=== PATIENT | male | born 1970 | race Caucasian/White ===

== ENCOUNTER 2022-07-12 14:56 | Inpatient (IN) | payer OTHER ==
[2022-07-12 15:55] VITALS: BMI 22.1
[2022-07-12] MEDS ORDERED: MAG HYDROX/AL HYDROX/SIMETH 30 ML UNIT-DOSE CUP PO PRN (19:43)
[2022-07-12] MEDS ORDERED: NALOXONE HCL (KLOXXADO) 8 MG SPRAY NS PRN (19:43)
[2022-07-12] MEDS ORDERED: P-EPHED 60MG/TRIPROLIDI 2.5MG TABLET PO PRN (19:43)
[2022-07-12] MEDS ORDERED: guaiFENesin 600 MG TABLET.ER (FP) PO PRN (19:43)
[2022-07-12] MEDS ORDERED: MAGNESIUM HYDROX 2400MG/30ML ORAL SUSPENSION 30 ML CUP PO PRN (19:43)
[2022-07-12] MEDS ORDERED: POLYETHYLENE GLYCOL (HEALTHYLAX) 3350 17 GM PACKET PO PRN (19:43)
[2022-07-12] MEDS ORDERED: LOPERAMIDE HCL 2 MG CAPSULE PO PRN (19:43)
[2022-07-12] MEDS ORDERED: BENZOCAINE/MENTHOL (CHLORASEPTIC ) LOZENGE MM PRN (19:43)
[2022-07-12] MEDS ORDERED: DICYCLOMINE HCL 10 MG CAPSULE PO PRN (19:43)
[2022-07-12] MEDS ORDERED: METHOCARBAMOL 500 MG TABLET PO PRN (19:43)
[2022-07-12] MEDS ORDERED: BENZONATATE 200 MG CAPSULE PO PRN (19:43)
[2022-07-12] MEDS ORDERED: BISMUTH SUBSALICYLATE 524 MG/30 ML PO PRN (19:43)
[2022-07-12] MEDS ORDERED: NICOTINE POLACRILEX 2 MG GUM BUC PRN (19:43)
[2022-07-12] MEDS ORDERED: ONDANSETRON *ODT* 4 MG TABLET SL PRN (19:43)
[2022-07-12] MEDS ORDERED: IBUPROFEN 400 MG TABLET (FP) PO PRN (19:43)
[2022-07-12] MEDS ORDERED: ACETAMINOPHEN 325 MG TABLET (FP) PO PRN ×2 (19:43)
[2022-07-12] MEDS ORDERED: NALOXONE HCL 0.4 MG/ML VIAL IM PRN (19:43)
[2022-07-12] MEDS ORDERED: IBUPROFEN 600 MG TABLET (FP) PO ONE (20:28)
[2022-07-12] MEDS: IBUPROFEN 600 MG TABLET (FP) PO PRN (20:30)
[2022-07-12] MEDS: diazePAM 5 MG TABLET PO PRN (21:17)
[2022-07-12] MEDS: MELATONIN 5 MG TABLETS PO PRN (21:18)
[2022-07-12] MEDS: THIAMINE HCL 100 MG TABLET (FP) PO SCH (21:18)
[2022-07-12] MEDS: diazePAM 5 MG TABLET PO SCH (22:30)
[2022-07-13] MEDS: diazePAM 5 MG TABLET PO SCH ×4 (05:42→22:21)
[2022-07-13] MEDS: IBUPROFEN 600 MG TABLET (FP) PO PRN ×2 (05:45→14:16)
[2022-07-13] MEDS ORDERED: methaDONE HCL 40 MG DISPERSABLE TABLET PO SCH (10:00)
[2022-07-13] MEDS: PRENATAL VITAMINS W/ FOLIC ACID TABLET (FP) PO SCH (10:10)
[2022-07-13] MEDS: diazePAM 5 MG TABLET PO PRN (13:27)
[2022-07-13 18:20] LABS: HEMATOCRIT 34.4 % (35.4-49); HEMOGLOBIN 11.9 GM/dL (11.7-16.9); MCH 30.6 pg (25.7-33.7); MCHC 34.6 g/dl (32.0-35.9); MEAN CELL VOLUME 88.2 fl (80-96); MEAN PLT VOLUME 8.9 fl (7.5-11.1); PLATELET COUNT 101 10^3/uL (134-434); RDW 13.4 % (11.9-15.9); WHITE BLOOD COUNT 2.9 K/mm3 (4.0-10.0)
[2022-07-13 18:31] LABS: POTASSIUM 4.6 mmol/L (3.5-5.1)
[2022-07-13 18:37] LABS: CALCIUM 8.7 mg/dL (8.5-10.1)
[2022-07-13 18:38] LABS: ALBUMIN 3.8 g/dl (3.4-5.0); BLOOD UREA NITROGEN 21.5 mg/dL (7-18)
[2022-07-13 18:41] LABS: BILIRUBIN,TOTAL 0.4 mg/dL (0.2-1); CREATININE 0.7 mg/dL (0.55-1.3)
[2022-07-13] MEDS: traZODone HCL 50 MG TABLET (FP) PO SCH (22:21)
[2022-07-13] MEDS: THIAMINE HCL 100 MG TABLET (FP) PO SCH (22:21)
[2022-07-13] MEDS: MELATONIN 5 MG TABLETS PO PRN (22:22)
[2022-07-14] MEDS ORDERED: diazePAM 5 MG TABLET PO SCH (06:00)
[2022-07-14] MEDS: PRENATAL VITAMINS W/ FOLIC ACID TABLET (FP) PO SCH (10:22)
[2022-07-14] MEDS: chlordiazePOXIDE HCL 25 MG CAPSULE PO SCH ×3 (10:23→22:06)
[2022-07-14] MEDS: chlordiazePOXIDE HCL 25 MG CAPSULE PO PRN (14:17)
[2022-07-14] MEDS: IBUPROFEN 600 MG TABLET (FP) PO PRN (17:10)
[2022-07-14] MEDS: THIAMINE HCL 100 MG TABLET (FP) PO SCH (22:06)
[2022-07-14] MEDS: traZODone HCL 50 MG TABLET (FP) PO SCH (22:06)
[2022-07-15] MEDS: chlordiazePOXIDE HCL 25 MG CAPSULE PO SCH ×4 (05:29→22:47)
[2022-07-15] MEDS ORDERED: diazePAM 5 MG TABLET PO SCH (06:00)
[2022-07-15] MEDS: PRENATAL VITAMINS W/ FOLIC ACID TABLET (FP) PO SCH (10:33)
[2022-07-15] MEDS: chlordiazePOXIDE HCL 25 MG CAPSULE PO PRN (15:35)
[2022-07-15] MEDS: THIAMINE HCL 100 MG TABLET (FP) PO SCH (22:47)
[2022-07-15] MEDS: traZODone HCL 50 MG TABLET (FP) PO SCH (22:47)
[2022-07-16] MEDS: chlordiazePOXIDE HCL 25 MG CAPSULE PO SCH ×4 (05:31→22:09)
[2022-07-16] MEDS ORDERED: diazePAM 5 MG TABLET PO ONE (06:00)
[2022-07-16] MEDS: PRENATAL VITAMINS W/ FOLIC ACID TABLET (FP) PO SCH (10:47)
[2022-07-16] MEDS: traZODone HCL 50 MG TABLET (FP) PO SCH (22:09)
[2022-07-16] MEDS: THIAMINE HCL 100 MG TABLET (FP) PO SCH (22:09)
[2022-07-17] MEDS ORDERED: chlordiazePOXIDE HCL 10 MG CAPSULE PO PRN
[2022-07-17] MEDS: chlordiazePOXIDE HCL 10 MG CAPSULE PO SCH ×4 (05:41→22:32)
[2022-07-17] MEDS: PRENATAL VITAMINS W/ FOLIC ACID TABLET (FP) PO SCH (10:08)
[2022-07-17] MEDS: IBUPROFEN 600 MG TABLET (FP) PO PRN (10:09)
[2022-07-17] MEDS: THIAMINE HCL 100 MG TABLET (FP) PO SCH (22:31)
[2022-07-17] MEDS: traZODone HCL 50 MG TABLET (FP) PO SCH (22:32)
[2022-07-17] MEDS: GABAPENTIN 400 MG CAPSULE PO SCH (22:32)
[2022-07-18] MEDS: GABAPENTIN 400 MG CAPSULE PO SCH ×3 (05:55→22:44)
[2022-07-18] MEDS: chlordiazePOXIDE HCL 10 MG CAPSULE PO SCH ×2 (05:55→18:06)
[2022-07-18] MEDS: PRENATAL VITAMINS W/ FOLIC ACID TABLET (FP) PO SCH (10:32)
[2022-07-18 15:59] LABS: SGOT/AST 75 U/L (15-37); SGPT/ALT 112 U/L (13-61)
[2022-07-18] MEDS: THIAMINE HCL 100 MG TABLET (FP) PO SCH (22:44)
[2022-07-18] MEDS: traZODone HCL 50 MG TABLET (FP) PO SCH (22:44)
[2022-07-19] MEDS ORDERED: chlordiazePOXIDE HCL 10 MG CAPSULE PO ONE (05:00)
[2022-07-19] MEDS: GABAPENTIN 400 MG CAPSULE PO SCH ×3 (06:29→22:48)
[2022-07-19] MEDS: PRENATAL VITAMINS W/ FOLIC ACID TABLET (FP) PO SCH (10:27)
[2022-07-19 14:30] VITALS: BP 113/72; PULSE 68; RESP 18; TEMP 98.6
[2022-07-19] MEDS: THIAMINE HCL 100 MG TABLET (FP) PO SCH (22:48)
== END 2022-07-19 23:34 | disposition short-term general hospital (02) | DRG 773 ==
LOC: YASAS 14:56 → Y3N 20:35
PROVIDERS: ADMIT Allergy & Immunology; ATTEND Surgery
PROC: HZ2ZZZZ Detoxification Services for Substance Abuse Treatment (ICD-10-PCS; principal; 2022-07-12)
DX: F10.230 Alcohol dependence with withdrawal, uncomplicated (principal); F11.20 Opioid dependence, uncomplicated; F17.210 Nicotine dependence, cigarettes, uncomplicated; F19.24 Other psychoactive substance dependence with psychoactive substance-induced mood disorder; F32.A Depression, unspecified; F43.10 Post-traumatic stress disorder, unspecified; G47.00 Insomnia, unspecified; R79.89 Other specified abnormal findings of blood chemistry; R74.01 Elevation of levels of liver transaminase levels; D72.819 Decreased white blood cell count, unspecified; Z87.828 Personal history of other (healed) physical injury and trauma; Z59.00 Homelessness unspecified
CPT/HCPCS: 36415; 80053; 82140; 84450; 84460; 85027; 86780; 87811; 93005; 93010; C9803-CS; U0003; U0005

== ENCOUNTER 2022-07-19 15:18 | Observation (INO) | payer OTHER ==
[2022-07-19] MEDS ORDERED: ACETAMINOPHEN 1000 MG/100 ML BAG IVPB ONE (16:54)
[2022-07-19] MEDS ORDERED: SODIUM CHLORIDE 0.9% 1000 ML INFUS.BAG IV ONE (16:54)
[2022-07-19] MEDS ORDERED: LIDOCAINE 5% TOPICAL PATCH TP ONE (16:54)
[2022-07-19 17:13] LABS: BASO % 0.3 % (0-2.0); EOS % 3.2 % (0-4.5); HEMATOCRIT 34.7 % (35.4-49); HEMOGLOBIN 11.6 GM/dL (11.7-16.9); LYMPH % 31.3 % (8-40); MCH 30.1 pg (25.7-33.7); MCHC 33.5 g/dl (32.0-35.9); MEAN CELL VOLUME 89.9 fl (80-96); MEAN PLT VOLUME 8.8 fl (7.5-11.1); NEUT % 48.2 % (42.8-82.8); PLATELET COUNT 85 10^3/uL (134-434); RBC 3.86 M/mm3 (4.00-5.60); RDW 13.2 % (11.9-15.9); WHITE BLOOD COUNT 3.4 K/mm3 (4.0-10.0)
[2022-07-19 17:20] LABS: INR 1.17 (0.83-1.09); PROTHROMBIN TIME (PATIENT) 13.6 SEC (9.7-13.0)
[2022-07-19 17:39] LABS: POTASSIUM 4.2 mmol/L (3.5-5.1)
[2022-07-19 17:40] LABS: CALCIUM 8.8 mg/dL (8.5-10.1)
[2022-07-19 17:41] LABS: ALBUMIN 3.3 g/dl (3.4-5.0); BLOOD UREA NITROGEN 18.7 mg/dL (7-18)
[2022-07-19 17:44] LABS: CREATININE 0.7 mg/dL (0.55-1.3)
[2022-07-19 17:46] LABS: URINE APPEARANCE CLEAR; URINE BILIRUBIN NEGATIVE (NEGATIVE); URINE COLOR YELLOW; URINE GLUCOSE (UA) NEGATIVE (NEGATIVE); URINE KETONE NEGATIVE (NEGATIVE); URINE LEUK ESTERASE NEGATIVE (NEGATIVE); URINE NITRITE NEGATIVE (NEGATIVE); URINE PROTEIN NEGATIVE (NEGATIVE)
[2022-07-19 17:46] LABS: BILIRUBIN,TOTAL 0.6 mg/dL (0.2-1); TOT PROT 6.5 g/dl (6.4-8.2)
[2022-07-19 17:49] LABS: N-TERMINAL BNP 100.4 pg/ml (5-125)
[2022-07-19] MEDS ORDERED: LACTULOSE 20 GM/30 ML UDC (FOR ORAL USE ONLY) PO ONE (18:05)
[2022-07-19] MEDS ORDERED: LACTULOSE 20 GM/30 ML UDC (FOR ORAL USE ONLY) ONE (19:18)
[2022-07-19] MEDS ORDERED: ACETAMINOPHEN INJECTION 100 ML IVPB ONE (19:19)
[2022-07-19] MEDS ORDERED: LIDOCAINE 5% TOPICAL PATCH ONE ×2 (19:19)
[2022-07-20] MEDS: LIDOCAINE PATCH REMOVAL MC SCH ×2 (00:49→22:45)
[2022-07-20 00:59] VITALS: RESP 18
[2022-07-20] MEDS ORDERED: MAGNESIUM HYDROX 2400MG/30ML ORAL SUSPENSION 30 ML CUP PO PRN (01:31)
[2022-07-20] MEDS: SODIUM CHLORIDE 1,000 ML IV SCH (01:44)
[2022-07-20] MEDS ORDERED: methaDONE HCL 40 MG DISPERSABLE TABLET PO SCH (07:00)
[2022-07-20 08:25] LABS: POTASSIUM 4.6 mmol/L (3.5-5.1)
[2022-07-20 08:57] LABS: ALBUMIN 3.4 g/dl (3.4-5.0); MAGNESIUM 2.2 mg/dL (1.8-2.4)
[2022-07-20 08:59] LABS: CREATININE 0.7 mg/dL (0.55-1.3); PHOSPHOROUS 5.4 mg/dL (2.5-4.9)
[2022-07-20 09:01] LABS: BILIRUBIN,TOTAL 0.9 mg/dL (0.2-1); TOT PROT 6.7 g/dl (6.4-8.2)
[2022-07-20] MEDS ORDERED: NALOXONE HCL 0.4 MG/ML VIAL IVPUSH PRN (09:02)
[2022-07-20 09:07] LABS: BLOOD UREA NITROGEN 18.2 mg/dL (7-18)
[2022-07-20 10:05] LABS: BASO % 0.3 % (0-2.0); EOS % 2.8 % (0-4.5); HEMATOCRIT 36.7 % (35.4-49); HEMOGLOBIN 12.8 GM/dL (11.7-16.9); LYMPH % 22.8 % (8-40); MEAN CELL VOLUME 88.7 fl (80-96); MONO % 11.9 % (3.8-10.2); NEUT % 62.2 % (42.8-82.8); PLATELET COUNT 89 10^3/uL (134-434); RBC 4.13 M/mm3 (4.00-5.60); RDW 13.1 % (11.9-15.9); WHITE BLOOD COUNT 4.1 K/mm3 (4.0-10.0)
[2022-07-20] MEDS: SENNOSIDES 8.6MG TABLET (FP) PO SCH ×2 (11:40→21:16)
[2022-07-20] MEDS: DOCUSATE SODIUM 100 MG CAPSULE (FP) PO SCH (11:40)
[2022-07-20] MEDS: NICOTINE 14 MG/24 HOURS TOPICAL PATCH TD SCH (11:40)
[2022-07-20] MEDS: FOLIC ACID 1 MG TABLET (FP) PO SCH (11:40)
[2022-07-20] MEDS: THIAMINE HCL 100 MG TABLET (FP) PO SCH (11:40)
[2022-07-20] MEDS: LACTULOSE 20 GM/30 ML UDC (FOR ORAL USE ONLY) PO SCH ×4 (11:40→21:17)
[2022-07-20] MEDS: POLYETHYLENE GLYCOL (HEALTHYLAX) 3350 17 GM PACKET PO SCH (11:41)
[2022-07-20] MEDS: ENOXAPARIN NA (PORCINE) 40 MG/0.4 ML DISP.SYRIN SQ SCH (11:48)
[2022-07-20] MEDS ORDERED: MELATONIN 5 MG TABLETS PO PRN (23:33)
[2022-07-21] MEDS: SODIUM CHLORIDE 1,000 ML IV SCH (01:34)
[2022-07-21] MEDS: DOCUSATE SODIUM 100 MG CAPSULE (FP) PO SCH (09:56)
[2022-07-21] MEDS: FOLIC ACID 1 MG TABLET (FP) PO SCH (09:56)
[2022-07-21] MEDS: THIAMINE HCL 100 MG TABLET (FP) PO SCH (09:56)
[2022-07-21] MEDS: LACTULOSE 20 GM/30 ML UDC (FOR ORAL USE ONLY) PO SCH (09:56)
[2022-07-21] MEDS: POLYETHYLENE GLYCOL (HEALTHYLAX) 3350 17 GM PACKET PO SCH (09:56)
[2022-07-21] MEDS: SENNOSIDES 8.6MG TABLET (FP) PO SCH (09:56)
[2022-07-21] MEDS: NICOTINE 14 MG/24 HOURS TOPICAL PATCH TD SCH (09:56)
[2022-07-21] MEDS: ENOXAPARIN NA (PORCINE) 40 MG/0.4 ML DISP.SYRIN SQ SCH (10:02)
[2022-07-21 13:00] VITALS: BP 127/86; PULSE 68; TEMP 97
[2022-07-21 13:54] VITALS: BMI 23.7
== END 2022-07-21 13:13 | disposition other institution (70) ==
LOC: JER 15:18 → INTOOBSV 22:39 → JERBED 22:39 → J5S 07-20 01:03
PROVIDERS: ADMIT Internal Medicine; ATTEND Internal Medicine
PROC: 3E033NZ Introduction of Analgesics, Hypnotics, Sedatives into Peripheral Vein, Percutaneous Approach (ICD-10-PCS; principal; 2022-07-19)
PROC: 3E023GC Introduction of Other Therapeutic Substance into Muscle, Percutaneous Approach (ICD-10-PCS; 2022-07-19)
PROC: 3E0337Z Introduction of Electrolytic and Water Balance Substance into Peripheral Vein, Percutaneous Approach (ICD-10-PCS; 2022-07-19)
DX: F19.10 Other psychoactive substance abuse, uncomplicated (principal); R53.1 Weakness; Z72.0 Tobacco use
CPT/HCPCS: 0241U-QW; 36415; 70450-TC; 71045-TC-FY; 72125-TC; 72131-TC; 72148-TC; 80053; 81003; 82728; 83540; 83550; 83735; 83880; 84100; 84443; 84484; 85025; 85045; 85610; 85730; 86850; 86900; 86901; 87086; 93005; 93010; 93970-TC; 96372; 96374; 96375; 99285-25; G0378

== ENCOUNTER 2022-07-21 13:33 | Inpatient (IN) | payer OTHER ==
[2022-07-21 13:48] VITALS: BMI 23.5
[2022-07-21] MEDS ORDERED: NALOXONE HCL 0.4 MG/ML VIAL IVPUSH PRN (14:07)
[2022-07-21] MEDS ORDERED: COLLOIDAL OATMEAL 1 BAR EACH TP PRN (14:07)
[2022-07-21] MEDS ORDERED: POLYETHYLENE GLYCOL (HEALTHYLAX) 3350 17 GM PACKET PO PRN (14:07)
[2022-07-21] MEDS ORDERED: MAG HYDROX/AL HYDROX/SIMETH 30 ML UNIT-DOSE CUP PO PRN (14:07)
[2022-07-21] MEDS ORDERED: ACETAMINOPHEN 325 MG TABLET (FP) PO PRN (14:07)
[2022-07-21] MEDS ORDERED: BENZOCAINE/MENTHOL (CHLORASEPTIC ) LOZENGE MM PRN (14:07)
[2022-07-21] MEDS ORDERED: BENZONATATE 200 MG CAPSULE PO PRN (14:07)
[2022-07-21] MEDS ORDERED: NALOXONE HCL (KLOXXADO) 8 MG SPRAY NS PRN (14:07)
[2022-07-21] MEDS ORDERED: guaiFENesin 600 MG TABLET.ER (FP) PO PRN (14:07)
[2022-07-21] MEDS ORDERED: MAGNESIUM HYDROX 2400MG/30ML ORAL SUSPENSION 30 ML CUP PO PRN (14:07)
[2022-07-21] MEDS ORDERED: AMMONIUM LACTATE 12% LOTION 225 GM BOTTLE TP PRN (14:07)
[2022-07-21] MEDS ORDERED: LOPERAMIDE HCL 2 MG CAPSULE PO PRN (14:07)
[2022-07-21] MEDS: NICOTINE 14 MG/24 HOURS TOPICAL PATCH TD SCH (18:25)
[2022-07-21] MEDS: PRENATAL VITAMINS W/ FOLIC ACID TABLET (FP) PO SCH (18:26)
[2022-07-21] MEDS: LACTULOSE 20 GM/30 ML UDC (FOR ORAL USE ONLY) PO SCH ×2 (18:27→21:58)
[2022-07-21] MEDS: MELATONIN 5 MG TABLETS PO SCH (21:57)
[2022-07-21] MEDS: THIAMINE HCL 100 MG TABLET (FP) PO SCH (21:58)
[2022-07-22] MEDS ORDERED: methaDONE HCL 40 MG DISPERSABLE TABLET PO SCH (06:00)
[2022-07-22] MEDS: LACTULOSE 20 GM/30 ML UDC (FOR ORAL USE ONLY) PO SCH ×4 (09:28→21:06)
[2022-07-22] MEDS: PRENATAL VITAMINS W/ FOLIC ACID TABLET (FP) PO SCH (09:28)
[2022-07-22] MEDS: NICOTINE 14 MG/24 HOURS TOPICAL PATCH TD SCH (09:28)
[2022-07-22] MEDS: THIAMINE HCL 100 MG TABLET (FP) PO SCH (21:06)
[2022-07-22] MEDS: MELATONIN 5 MG TABLETS PO SCH (21:06)
[2022-07-22] MEDS: IBUPROFEN 600 MG TABLET (FP) PO PRN (21:07)
[2022-07-23] MEDS: LACTULOSE 20 GM/30 ML UDC (FOR ORAL USE ONLY) PO SCH ×4 (09:56→21:25)
[2022-07-23] MEDS: NICOTINE 14 MG/24 HOURS TOPICAL PATCH TD SCH (09:56)
[2022-07-23] MEDS: PRENATAL VITAMINS W/ FOLIC ACID TABLET (FP) PO SCH (09:56)
[2022-07-23] MEDS: IBUPROFEN 600 MG TABLET (FP) PO PRN (10:00)
[2022-07-23] MEDS: hydrOXYzine PAMOATE 25 MG CAPSULE (FP) PO PRN (13:37)
[2022-07-23] MEDS: THIAMINE HCL 100 MG TABLET (FP) PO SCH (21:25)
[2022-07-23] MEDS: MELATONIN 5 MG TABLETS PO SCH (21:25)
[2022-07-24] MEDS: PRENATAL VITAMINS W/ FOLIC ACID TABLET (FP) PO SCH (10:17)
[2022-07-24] MEDS: NICOTINE 14 MG/24 HOURS TOPICAL PATCH TD SCH (10:17)
[2022-07-24] MEDS: LACTULOSE 20 GM/30 ML UDC (FOR ORAL USE ONLY) PO SCH ×4 (10:17→21:10)
[2022-07-24] MEDS: hydrOXYzine PAMOATE 25 MG CAPSULE (FP) PO PRN ×2 (10:20→21:11)
[2022-07-24] MEDS: METHOCARBAMOL 500 MG TABLET PO PRN ×2 (10:20→21:11)
[2022-07-24] MEDS: IBUPROFEN 600 MG TABLET (FP) PO PRN (13:46)
[2022-07-24] MEDS: THIAMINE HCL 100 MG TABLET (FP) PO SCH (21:10)
[2022-07-24] MEDS: MELATONIN 5 MG TABLETS PO SCH (21:10)
[2022-07-25] MEDS: PRENATAL VITAMINS W/ FOLIC ACID TABLET (FP) PO SCH (09:48)
[2022-07-25] MEDS: hydrOXYzine PAMOATE 25 MG CAPSULE (FP) PO PRN ×2 (09:49→20:58)
[2022-07-25] MEDS: LACTULOSE 20 GM/30 ML UDC (FOR ORAL USE ONLY) PO SCH ×4 (09:49→23:14)
[2022-07-25] MEDS: NICOTINE 14 MG/24 HOURS TOPICAL PATCH TD SCH (09:49)
[2022-07-25] MEDS: METHOCARBAMOL 500 MG TABLET PO PRN (09:50)
[2022-07-25] MEDS: IBUPROFEN 600 MG TABLET (FP) PO PRN (14:12)
[2022-07-25] MEDS: IBUPROFEN 400 MG TABLET (FP) PO PRN (20:59)
[2022-07-25] MEDS: MELATONIN 5 MG TABLETS PO SCH (20:59)
[2022-07-25] MEDS: THIAMINE HCL 100 MG TABLET (FP) PO SCH (20:59)
[2022-07-26] MEDS: PRENATAL VITAMINS W/ FOLIC ACID TABLET (FP) PO SCH (09:48)
[2022-07-26] MEDS: NICOTINE 14 MG/24 HOURS TOPICAL PATCH TD SCH (09:48)
[2022-07-26] MEDS: hydrOXYzine PAMOATE 25 MG CAPSULE (FP) PO PRN (09:49)
[2022-07-26] MEDS: LACTULOSE 20 GM/30 ML UDC (FOR ORAL USE ONLY) PO SCH ×4 (09:50→21:22)
[2022-07-26] MEDS: METHOCARBAMOL 500 MG TABLET PO PRN (09:50)
[2022-07-26] MEDS: IBUPROFEN 600 MG TABLET (FP) PO PRN (09:50)
[2022-07-26] MEDS: THIAMINE HCL 100 MG TABLET (FP) PO SCH (21:23)
[2022-07-26] MEDS: MELATONIN 5 MG TABLETS PO SCH (21:23)
[2022-07-27] MEDS: LACTULOSE 20 GM/30 ML UDC (FOR ORAL USE ONLY) PO SCH ×4 (09:48→21:07)
[2022-07-27] MEDS: NICOTINE 14 MG/24 HOURS TOPICAL PATCH TD SCH (09:49)
[2022-07-27] MEDS: PRENATAL VITAMINS W/ FOLIC ACID TABLET (FP) PO SCH (09:50)
[2022-07-27] MEDS: hydrOXYzine PAMOATE 25 MG CAPSULE (FP) PO PRN (09:51)
[2022-07-27] MEDS: IBUPROFEN 600 MG TABLET (FP) PO PRN ×2 (09:52→21:07)
[2022-07-27] MEDS: NICOTINE 10 MG CARTRIDGE (INHALER) IH PRN (09:54)
[2022-07-27] MEDS: MELATONIN 5 MG TABLETS PO SCH (21:06)
[2022-07-27] MEDS: THIAMINE HCL 100 MG TABLET (FP) PO SCH (21:06)
[2022-07-28] MEDS: LACTULOSE 20 GM/30 ML UDC (FOR ORAL USE ONLY) PO SCH ×4 (09:44→21:07)
[2022-07-28] MEDS: IBUPROFEN 600 MG TABLET (FP) PO PRN (09:45)
[2022-07-28] MEDS: PRENATAL VITAMINS W/ FOLIC ACID TABLET (FP) PO SCH (09:45)
[2022-07-28] MEDS: NICOTINE 14 MG/24 HOURS TOPICAL PATCH TD SCH (09:45)
[2022-07-28] MEDS: hydrOXYzine PAMOATE 25 MG CAPSULE (FP) PO PRN (09:46)
[2022-07-28] MEDS: NICOTINE 10 MG CARTRIDGE (INHALER) IH PRN (09:46)
[2022-07-28] MEDS ORDERED: MELATONIN 5 MG TABLETS PO SCH (13:06)
[2022-07-28] MEDS: GABAPENTIN 100 MG CAPSULE PO SCH ×2 (14:00→21:07)
[2022-07-28] MEDS: THIAMINE HCL 100 MG TABLET (FP) PO SCH (21:07)
[2022-07-28] MEDS: SUVOREXANT 10 MG TABLET PO PRN (21:09)
[2022-07-29] MEDS: GABAPENTIN 100 MG CAPSULE PO SCH ×3 (06:07→21:17)
[2022-07-29] MEDS: LACTULOSE 20 GM/30 ML UDC (FOR ORAL USE ONLY) PO SCH ×4 (09:21→21:17)
[2022-07-29] MEDS: NICOTINE 14 MG/24 HOURS TOPICAL PATCH TD SCH (09:21)
[2022-07-29] MEDS: PRENATAL VITAMINS W/ FOLIC ACID TABLET (FP) PO SCH (09:21)
[2022-07-29] MEDS: NICOTINE 10 MG CARTRIDGE (INHALER) IH PRN (09:21)
[2022-07-29] MEDS: IBUPROFEN 600 MG TABLET (FP) PO PRN (09:23)
[2022-07-29 10:33] LABS: POTASSIUM 4.7 mmol/L (3.5-5.1)
[2022-07-29 10:35] LABS: ALBUMIN 3.9 g/dl (3.4-5.0); BLOOD UREA NITROGEN 21.7 mg/dL (7-18); CALCIUM 9.3 mg/dL (8.5-10.1)
[2022-07-29 10:38] LABS: CREATININE 0.7 mg/dL (0.55-1.3)
[2022-07-29 10:40] LABS: BILIRUBIN,TOTAL 0.5 mg/dL (0.2-1); TOT PROT 7.8 g/dl (6.4-8.2)
[2022-07-29] MEDS: hydrOXYzine PAMOATE 25 MG CAPSULE (FP) PO PRN (21:17)
[2022-07-29] MEDS: THIAMINE HCL 100 MG TABLET (FP) PO SCH (21:17)
[2022-07-29] MEDS: SUVOREXANT 10 MG TABLET PO PRN (21:19)
[2022-07-30] MEDS: GABAPENTIN 100 MG CAPSULE PO SCH ×3 (06:08→21:39)
[2022-07-30] MEDS: LACTULOSE 20 GM/30 ML UDC (FOR ORAL USE ONLY) PO SCH ×4 (09:21→21:39)
[2022-07-30] MEDS: PRENATAL VITAMINS W/ FOLIC ACID TABLET (FP) PO SCH (09:21)
[2022-07-30] MEDS: NICOTINE 10 MG CARTRIDGE (INHALER) IH PRN ×2 (09:22→13:47)
[2022-07-30] MEDS: NICOTINE 14 MG/24 HOURS TOPICAL PATCH TD SCH (09:50)
[2022-07-30] MEDS: hydrOXYzine PAMOATE 25 MG CAPSULE (FP) PO PRN (13:47)
[2022-07-30] MEDS: RIFAXIMIN 200 MG TABLET PO SCH ×2 (15:32→21:34)
[2022-07-30] MEDS: THIAMINE HCL 100 MG TABLET (FP) PO SCH (21:40)
[2022-07-30] MEDS: SUVOREXANT 10 MG TABLET PO PRN (21:40)
[2022-07-31] MEDS: GABAPENTIN 100 MG CAPSULE PO SCH ×3 (06:16→21:06)
[2022-07-31] MEDS: RIFAXIMIN 200 MG TABLET PO SCH ×3 (06:17→21:06)
[2022-07-31] MEDS: NICOTINE 14 MG/24 HOURS TOPICAL PATCH TD SCH (09:53)
[2022-07-31] MEDS: PRENATAL VITAMINS W/ FOLIC ACID TABLET (FP) PO SCH (09:53)
[2022-07-31] MEDS: hydrOXYzine PAMOATE 25 MG CAPSULE (FP) PO PRN (09:54)
[2022-07-31] MEDS: IBUPROFEN 600 MG TABLET (FP) PO PRN ×3 (09:54→21:07)
[2022-07-31] MEDS: LACTULOSE 20 GM/30 ML UDC (FOR ORAL USE ONLY) PO SCH ×4 (10:16→21:06)
[2022-07-31] MEDS: THIAMINE HCL 100 MG TABLET (FP) PO SCH (21:06)
[2022-07-31] MEDS ORDERED: SUVOREXANT 10 MG TABLET PO PRN (22:00)
[2022-08-01] MEDS: RIFAXIMIN 200 MG TABLET PO SCH ×3 (06:08→23:02)
[2022-08-01] MEDS: GABAPENTIN 100 MG CAPSULE PO SCH ×3 (06:08→23:02)
[2022-08-01] MEDS: LACTULOSE 20 GM/30 ML UDC (FOR ORAL USE ONLY) PO SCH ×4 (09:25→23:02)
[2022-08-01] MEDS: NICOTINE 10 MG CARTRIDGE (INHALER) IH PRN (09:26)
[2022-08-01] MEDS: PRENATAL VITAMINS W/ FOLIC ACID TABLET (FP) PO SCH (09:26)
[2022-08-01] MEDS: NICOTINE 14 MG/24 HOURS TOPICAL PATCH TD SCH (09:26)
[2022-08-01] MEDS: IBUPROFEN 600 MG TABLET (FP) PO PRN (09:27)
[2022-08-01] MEDS: hydrOXYzine PAMOATE 25 MG CAPSULE (FP) PO PRN (09:28)
[2022-08-01] MEDS: THIAMINE HCL 100 MG TABLET (FP) PO SCH (23:02)
[2022-08-01] MEDS: MIRTAZAPINE 15 MG TABLET (FP) PO SCH (23:02)
[2022-08-02] MEDS: GABAPENTIN 100 MG CAPSULE PO SCH ×3 (06:26→21:18)
[2022-08-02] MEDS: RIFAXIMIN 200 MG TABLET PO SCH ×3 (06:26→21:18)
[2022-08-02] MEDS: NICOTINE 10 MG CARTRIDGE (INHALER) IH PRN ×2 (06:29→13:17)
[2022-08-02] MEDS: PRENATAL VITAMINS W/ FOLIC ACID TABLET (FP) PO SCH (09:54)
[2022-08-02] MEDS: LACTULOSE 20 GM/30 ML UDC (FOR ORAL USE ONLY) PO SCH ×4 (09:54→21:19)
[2022-08-02] MEDS: NICOTINE 14 MG/24 HOURS TOPICAL PATCH TD SCH (09:54)
[2022-08-02] MEDS: IBUPROFEN 600 MG TABLET (FP) PO PRN ×2 (09:56→21:18)
[2022-08-02 13:04] LABS: POTASSIUM 4.8 mmol/L (3.5-5.1)
[2022-08-02 13:09] LABS: ALBUMIN 3.7 g/dl (3.4-5.0); BLOOD UREA NITROGEN 19.4 mg/dL (7-18)
[2022-08-02 13:12] LABS: CREATININE 0.7 mg/dL (0.55-1.3)
[2022-08-02 13:13] LABS: TOT PROT 7.1 g/dl (6.4-8.2)
[2022-08-02 13:14] LABS: BILIRUBIN,TOTAL 0.6 mg/dL (0.2-1)
[2022-08-02] MEDS: IBUPROFEN 400 MG TABLET (FP) PO PRN (13:18)
[2022-08-02] MEDS: hydrOXYzine PAMOATE 50 MG CAPSULE (FP) PO PRN (21:18)
[2022-08-02] MEDS: THIAMINE HCL 100 MG TABLET (FP) PO SCH (21:18)
[2022-08-02] MEDS: MELATONIN 5 MG TABLETS PO SCH (21:18)
[2022-08-02] MEDS: MIRTAZAPINE 15 MG TABLET (FP) PO SCH (21:18)
[2022-08-03] MEDS: RIFAXIMIN 200 MG TABLET PO SCH ×3 (06:15→21:17)
[2022-08-03] MEDS: GABAPENTIN 100 MG CAPSULE PO SCH ×3 (06:15→21:17)
[2022-08-03] MEDS: NICOTINE 10 MG CARTRIDGE (INHALER) IH PRN ×3 (06:17→21:16)
[2022-08-03] MEDS: NICOTINE 14 MG/24 HOURS TOPICAL PATCH TD SCH (09:20)
[2022-08-03] MEDS: LACTULOSE 20 GM/30 ML UDC (FOR ORAL USE ONLY) PO SCH ×4 (09:20→21:17)
[2022-08-03] MEDS: PRENATAL VITAMINS W/ FOLIC ACID TABLET (FP) PO SCH (09:21)
[2022-08-03] MEDS: IBUPROFEN 600 MG TABLET (FP) PO PRN ×2 (09:21→21:17)
[2022-08-03] MEDS: THIAMINE HCL 100 MG TABLET (FP) PO SCH (21:16)
[2022-08-03] MEDS: MELATONIN 5 MG TABLETS PO SCH (21:16)
[2022-08-03] MEDS: MIRTAZAPINE 15 MG TABLET (FP) PO SCH (21:17)
[2022-08-03] MEDS: hydrOXYzine PAMOATE 50 MG CAPSULE (FP) PO PRN (21:18)
[2022-08-04] MEDS: NICOTINE 10 MG CARTRIDGE (INHALER) IH PRN ×3 (06:11→21:15)
[2022-08-04] MEDS: GABAPENTIN 100 MG CAPSULE PO SCH ×3 (06:11→21:15)
[2022-08-04] MEDS: RIFAXIMIN 200 MG TABLET PO SCH ×3 (06:11→21:16)
[2022-08-04] MEDS: LACTULOSE 20 GM/30 ML UDC (FOR ORAL USE ONLY) PO SCH ×4 (09:41→21:15)
[2022-08-04] MEDS: NICOTINE 14 MG/24 HOURS TOPICAL PATCH TD SCH (09:41)
[2022-08-04] MEDS: PRENATAL VITAMINS W/ FOLIC ACID TABLET (FP) PO SCH (09:41)
[2022-08-04] MEDS: IBUPROFEN 600 MG TABLET (FP) PO PRN (09:42)
[2022-08-04] MEDS: IBUPROFEN 400 MG TABLET (FP) PO PRN (13:50)
[2022-08-04] MEDS: THIAMINE HCL 100 MG TABLET (FP) PO SCH (21:16)
[2022-08-04] MEDS: MIRTAZAPINE 15 MG TABLET (FP) PO SCH (21:16)
[2022-08-04] MEDS: hydrOXYzine PAMOATE 50 MG CAPSULE (FP) PO PRN (21:16)
[2022-08-05] MEDS: NICOTINE 10 MG CARTRIDGE (INHALER) IH PRN ×3 (05:45→21:16)
[2022-08-05] MEDS: GABAPENTIN 100 MG CAPSULE PO SCH ×3 (05:46→21:16)
[2022-08-05] MEDS: RIFAXIMIN 200 MG TABLET PO SCH ×3 (07:09→21:16)
[2022-08-05] MEDS: NICOTINE 14 MG/24 HOURS TOPICAL PATCH TD SCH (10:55)
[2022-08-05] MEDS: LACTULOSE 20 GM/30 ML UDC (FOR ORAL USE ONLY) PO SCH ×4 (10:55→21:18)
[2022-08-05] MEDS: PRENATAL VITAMINS W/ FOLIC ACID TABLET (FP) PO SCH (11:26)
[2022-08-05] MEDS: IBUPROFEN 600 MG TABLET (FP) PO PRN ×2 (13:46→21:16)
[2022-08-05] MEDS: hydrOXYzine PAMOATE 50 MG CAPSULE (FP) PO PRN (21:16)
[2022-08-05] MEDS: MIRTAZAPINE 15 MG TABLET (FP) PO SCH (21:16)
[2022-08-05] MEDS: THIAMINE HCL 100 MG TABLET (FP) PO SCH (21:16)
[2022-08-06] MEDS: GABAPENTIN 100 MG CAPSULE PO SCH ×3 (06:27→21:09)
[2022-08-06] MEDS: RIFAXIMIN 200 MG TABLET PO SCH ×3 (06:27→21:09)
[2022-08-06] MEDS: NICOTINE 10 MG CARTRIDGE (INHALER) IH PRN ×2 (06:29→21:08)
[2022-08-06] MEDS: PRENATAL VITAMINS W/ FOLIC ACID TABLET (FP) PO SCH (09:43)
[2022-08-06] MEDS: hydrOXYzine PAMOATE 50 MG CAPSULE (FP) PO PRN (09:43)
[2022-08-06] MEDS: NICOTINE 14 MG/24 HOURS TOPICAL PATCH TD SCH (09:43)
[2022-08-06] MEDS: LACTULOSE 20 GM/30 ML UDC (FOR ORAL USE ONLY) PO SCH ×4 (09:44→21:53)
[2022-08-06] MEDS: THIAMINE HCL 100 MG TABLET (FP) PO SCH (21:08)
[2022-08-06] MEDS: MIRTAZAPINE 15 MG TABLET (FP) PO SCH (21:09)
[2022-08-07] MEDS: NICOTINE 10 MG CARTRIDGE (INHALER) IH PRN ×2 (06:23→13:39)
[2022-08-07] MEDS: RIFAXIMIN 200 MG TABLET PO SCH ×3 (06:24→21:38)
[2022-08-07] MEDS: GABAPENTIN 100 MG CAPSULE PO SCH ×3 (06:24→21:38)
[2022-08-07] MEDS: LACTULOSE 20 GM/30 ML UDC (FOR ORAL USE ONLY) PO SCH ×4 (09:44→21:38)
[2022-08-07] MEDS: PRENATAL VITAMINS W/ FOLIC ACID TABLET (FP) PO SCH (09:45)
[2022-08-07] MEDS: NICOTINE 14 MG/24 HOURS TOPICAL PATCH TD SCH (09:45)
[2022-08-07] MEDS: IBUPROFEN 600 MG TABLET (FP) PO PRN (09:47)
[2022-08-07] MEDS: hydrOXYzine PAMOATE 50 MG CAPSULE (FP) PO PRN (21:38)
[2022-08-07] MEDS: MIRTAZAPINE 15 MG TABLET (FP) PO SCH (21:38)
[2022-08-07] MEDS: THIAMINE HCL 100 MG TABLET (FP) PO SCH (21:38)
[2022-08-08] MEDS: RIFAXIMIN 200 MG TABLET PO SCH (06:03)
[2022-08-08] MEDS: GABAPENTIN 100 MG CAPSULE PO SCH ×3 (06:03→21:37)
[2022-08-08] MEDS: NICOTINE 10 MG CARTRIDGE (INHALER) IH PRN ×2 (06:06→12:06)
[2022-08-08] MEDS: LACTULOSE 20 GM/30 ML UDC (FOR ORAL USE ONLY) PO SCH ×4 (09:32→21:37)
[2022-08-08] MEDS: NICOTINE 14 MG/24 HOURS TOPICAL PATCH TD SCH (09:32)
[2022-08-08] MEDS: PRENATAL VITAMINS W/ FOLIC ACID TABLET (FP) PO SCH (09:33)
[2022-08-08] MEDS: hydrOXYzine PAMOATE 50 MG CAPSULE (FP) PO PRN ×2 (09:35→21:37)
[2022-08-08] MEDS: IBUPROFEN 600 MG TABLET (FP) PO PRN (09:35)
[2022-08-08] MEDS ORDERED: RIFAXIMIN 200 MG TABLET PO ONE (12:00)
[2022-08-08] MEDS: RIFAXIMIN 550 MG TABLET PO SCH ×2 (12:03→21:37)
[2022-08-08] MEDS: MIRTAZAPINE 15 MG TABLET (FP) PO SCH (21:37)
[2022-08-08] MEDS: THIAMINE HCL 100 MG TABLET (FP) PO SCH (21:37)
[2022-08-09] MEDS: GABAPENTIN 100 MG CAPSULE PO SCH ×3 (06:20→21:04)
[2022-08-09] MEDS: NICOTINE 10 MG CARTRIDGE (INHALER) IH PRN ×3 (06:21→21:05)
[2022-08-09] MEDS: PRENATAL VITAMINS W/ FOLIC ACID TABLET (FP) PO SCH (09:34)
[2022-08-09] MEDS: RIFAXIMIN 550 MG TABLET PO SCH ×2 (09:34→21:05)
[2022-08-09] MEDS: LACTULOSE 20 GM/30 ML UDC (FOR ORAL USE ONLY) PO SCH ×4 (09:34→21:05)
[2022-08-09] MEDS: NICOTINE 14 MG/24 HOURS TOPICAL PATCH TD SCH (09:34)
[2022-08-09] MEDS: IBUPROFEN 600 MG TABLET (FP) PO PRN (09:34)
[2022-08-09] MEDS: THIAMINE HCL 100 MG TABLET (FP) PO SCH (21:04)
[2022-08-09] MEDS: MIRTAZAPINE 15 MG TABLET (FP) PO SCH (21:04)
[2022-08-10] MEDS ORDERED: methaDONE HCL 40 MG DISPERSABLE TABLET PO SCH (06:00)
[2022-08-10] MEDS: GABAPENTIN 100 MG CAPSULE PO SCH ×3 (06:08→21:36)
[2022-08-10] MEDS: NICOTINE 10 MG CARTRIDGE (INHALER) IH PRN ×3 (06:10→21:37)
[2022-08-10] MEDS: NICOTINE 14 MG/24 HOURS TOPICAL PATCH TD SCH (10:18)
[2022-08-10] MEDS: IBUPROFEN 600 MG TABLET (FP) PO PRN (10:19)
[2022-08-10] MEDS: RIFAXIMIN 550 MG TABLET PO SCH ×2 (10:19→22:13)
[2022-08-10] MEDS: PRENATAL VITAMINS W/ FOLIC ACID TABLET (FP) PO SCH (10:19)
[2022-08-10] MEDS: LACTULOSE 20 GM/30 ML UDC (FOR ORAL USE ONLY) PO SCH ×4 (10:19→21:34)
[2022-08-10] MEDS: hydrOXYzine PAMOATE 50 MG CAPSULE (FP) PO PRN (21:34)
[2022-08-10] MEDS: THIAMINE HCL 100 MG TABLET (FP) PO SCH (21:35)
[2022-08-10] MEDS: MIRTAZAPINE 15 MG TABLET (FP) PO SCH (21:35)
[2022-08-11] MEDS: GABAPENTIN 100 MG CAPSULE PO SCH ×3 (06:05→21:17)
[2022-08-11] MEDS: NICOTINE 10 MG CARTRIDGE (INHALER) IH PRN ×3 (06:07→17:39)
[2022-08-11] MEDS: PRENATAL VITAMINS W/ FOLIC ACID TABLET (FP) PO SCH (10:08)
[2022-08-11] MEDS: NICOTINE 14 MG/24 HOURS TOPICAL PATCH TD SCH (10:08)
[2022-08-11] MEDS: LACTULOSE 20 GM/30 ML UDC (FOR ORAL USE ONLY) PO SCH ×4 (10:08→21:17)
[2022-08-11] MEDS: RIFAXIMIN 550 MG TABLET PO SCH ×2 (10:08→21:19)
[2022-08-11] MEDS: IBUPROFEN 600 MG TABLET (FP) PO PRN (10:09)
[2022-08-11] MEDS: MIRTAZAPINE 15 MG TABLET (FP) PO SCH (21:17)
[2022-08-11] MEDS: THIAMINE HCL 100 MG TABLET (FP) PO SCH (21:18)
[2022-08-12] MEDS: GABAPENTIN 100 MG CAPSULE PO SCH ×3 (06:09→21:17)
[2022-08-12] MEDS: NICOTINE 10 MG CARTRIDGE (INHALER) IH PRN ×2 (06:11→10:21)
[2022-08-12] MEDS: RIFAXIMIN 550 MG TABLET PO SCH ×2 (09:41→21:17)
[2022-08-12] MEDS: LACTULOSE 20 GM/30 ML UDC (FOR ORAL USE ONLY) PO SCH ×4 (09:41→21:16)
[2022-08-12] MEDS: PRENATAL VITAMINS W/ FOLIC ACID TABLET (FP) PO SCH (09:41)
[2022-08-12] MEDS: IBUPROFEN 600 MG TABLET (FP) PO PRN (09:42)
[2022-08-12] MEDS: NICOTINE 14 MG/24 HOURS TOPICAL PATCH TD SCH (09:42)
[2022-08-12] MEDS: MIRTAZAPINE 15 MG TABLET (FP) PO SCH (21:17)
[2022-08-12] MEDS: THIAMINE HCL 100 MG TABLET (FP) PO SCH (21:17)
[2022-08-12] MEDS: hydrOXYzine PAMOATE 50 MG CAPSULE (FP) PO PRN (21:17)
[2022-08-13] MEDS: GABAPENTIN 100 MG CAPSULE PO SCH ×3 (06:21→21:03)
[2022-08-13] MEDS: NICOTINE 10 MG CARTRIDGE (INHALER) IH PRN ×3 (06:24→21:03)
[2022-08-13] MEDS: PRENATAL VITAMINS W/ FOLIC ACID TABLET (FP) PO SCH (09:36)
[2022-08-13] MEDS: IBUPROFEN 600 MG TABLET (FP) PO PRN (09:36)
[2022-08-13] MEDS: LACTULOSE 20 GM/30 ML UDC (FOR ORAL USE ONLY) PO SCH ×4 (09:37→21:03)
[2022-08-13] MEDS: NICOTINE 14 MG/24 HOURS TOPICAL PATCH TD SCH (09:37)
[2022-08-13] MEDS: RIFAXIMIN 550 MG TABLET PO SCH ×2 (09:37→21:03)
[2022-08-13] MEDS: THIAMINE HCL 100 MG TABLET (FP) PO SCH (21:03)
[2022-08-13] MEDS: MIRTAZAPINE 15 MG TABLET (FP) PO SCH (21:03)
[2022-08-14] MEDS: GABAPENTIN 100 MG CAPSULE PO SCH ×3 (06:08→21:24)
[2022-08-14] MEDS: NICOTINE 10 MG CARTRIDGE (INHALER) IH PRN ×3 (06:08→21:23)
[2022-08-14] MEDS: NICOTINE 14 MG/24 HOURS TOPICAL PATCH TD SCH (09:37)
[2022-08-14] MEDS: PRENATAL VITAMINS W/ FOLIC ACID TABLET (FP) PO SCH (09:37)
[2022-08-14] MEDS: LACTULOSE 20 GM/30 ML UDC (FOR ORAL USE ONLY) PO SCH ×4 (09:38→21:25)
[2022-08-14] MEDS: IBUPROFEN 600 MG TABLET (FP) PO PRN (09:39)
[2022-08-14] MEDS: RIFAXIMIN 550 MG TABLET PO SCH ×2 (09:39→21:24)
[2022-08-14] MEDS: MIRTAZAPINE 15 MG TABLET (FP) PO SCH (21:24)
[2022-08-14] MEDS: THIAMINE HCL 100 MG TABLET (FP) PO SCH (21:24)
[2022-08-15] MEDS: NICOTINE 10 MG CARTRIDGE (INHALER) IH PRN ×3 (06:15→21:19)
[2022-08-15] MEDS: GABAPENTIN 100 MG CAPSULE PO SCH ×3 (06:15→21:19)
[2022-08-15] MEDS: LACTULOSE 20 GM/30 ML UDC (FOR ORAL USE ONLY) PO SCH ×4 (10:04→21:18)
[2022-08-15] MEDS: NICOTINE 14 MG/24 HOURS TOPICAL PATCH TD SCH (10:04)
[2022-08-15] MEDS: PRENATAL VITAMINS W/ FOLIC ACID TABLET (FP) PO SCH (10:04)
[2022-08-15] MEDS: IBUPROFEN 600 MG TABLET (FP) PO PRN (10:05)
[2022-08-15] MEDS: RIFAXIMIN 550 MG TABLET PO SCH ×2 (10:42→21:19)
[2022-08-15] MEDS: THIAMINE HCL 100 MG TABLET (FP) PO SCH (21:18)
[2022-08-15] MEDS: MIRTAZAPINE 15 MG TABLET (FP) PO SCH (21:19)
[2022-08-15] MEDS: hydrOXYzine PAMOATE 50 MG CAPSULE (FP) PO PRN (21:19)
[2022-08-16] MEDS: GABAPENTIN 100 MG CAPSULE PO SCH ×3 (06:11→22:50)
[2022-08-16] MEDS: NICOTINE 10 MG CARTRIDGE (INHALER) IH PRN ×3 (06:13→14:23)
[2022-08-16] MEDS: PRENATAL VITAMINS W/ FOLIC ACID TABLET (FP) PO SCH (10:09)
[2022-08-16] MEDS: NICOTINE 14 MG/24 HOURS TOPICAL PATCH TD SCH (10:09)
[2022-08-16] MEDS: LACTULOSE 20 GM/30 ML UDC (FOR ORAL USE ONLY) PO SCH ×4 (10:09→22:50)
[2022-08-16] MEDS: RIFAXIMIN 550 MG TABLET PO SCH ×2 (10:10→22:50)
[2022-08-16] MEDS: IBUPROFEN 600 MG TABLET (FP) PO PRN (10:11)
[2022-08-16] MEDS: THIAMINE HCL 100 MG TABLET (FP) PO SCH (22:50)
[2022-08-16] MEDS: MIRTAZAPINE 15 MG TABLET (FP) PO SCH (22:50)
[2022-08-17] MEDS: GABAPENTIN 100 MG CAPSULE PO SCH (06:11)
[2022-08-17] MEDS: NICOTINE 10 MG CARTRIDGE (INHALER) IH PRN (06:12)
[2022-08-17 06:57] VITALS: BP 117/76; PULSE 59; RESP 18; TEMP 97.9
[2022-08-17] MEDS: LACTULOSE 20 GM/30 ML UDC (FOR ORAL USE ONLY) PO SCH (09:07)
[2022-08-17] MEDS: NICOTINE 14 MG/24 HOURS TOPICAL PATCH TD SCH (09:07)
[2022-08-17] MEDS: RIFAXIMIN 550 MG TABLET PO SCH (09:08)
[2022-08-17] MEDS: PRENATAL VITAMINS W/ FOLIC ACID TABLET (FP) PO SCH (09:08)
== END 2022-08-17 09:22 | disposition home or self-care (01) | DRG 772 ==
LOC: YASAS 13:33 → Y3E 16:36 → UNDODISIN 07-25 15:30
PROVIDERS: ADMIT Allergy & Immunology; ATTEND Psychiatry & Neurology Pain Medicine
PROC: HZ42ZZZ Group Counseling for Substance Abuse Treatment, Cognitive-Behavioral (ICD-10-PCS; principal; 2022-07-21)
DX: F10.20 Alcohol dependence, uncomplicated (principal); F11.20 Opioid dependence, uncomplicated; F17.210 Nicotine dependence, cigarettes, uncomplicated; F19.24 Other psychoactive substance dependence with psychoactive substance-induced mood disorder; F41.8 Other specified anxiety disorders; E72.20 Disorder of urea cycle metabolism, unspecified; G47.00 Insomnia, unspecified; B18.2 Chronic viral hepatitis C; R79.89 Other specified abnormal findings of blood chemistry; R26.89 Other abnormalities of gait and mobility; Z87.828 Personal history of other (healed) physical injury and trauma
CPT/HCPCS: 36415; 80053; 82140; 86803; 87522; 87811; C9803-CS; U0003; U0005